=== PATIENT | female | born 1935 | race Caucasian/White ===

== ENCOUNTER 2017-10-08 08:21 | Outpatient (CLI) | payer MEDICARE, BC ==
[~2017-10-08] VITALS: Ht 170.2 cm; Wt 81.8 kg
[2017-10-08] MEDS ORDERED: LEVOXYL0.112 MG PO (08:36)
[2017-10-08] MEDS ORDERED: COUMADIN 2MG2 MG/TAB PO (08:36)
[2017-10-08] MEDS ORDERED: ZOCOR 10MG10 MG PO (08:37)
[2017-10-08] MEDS ORDERED: CALCIUM 600MG+D1 TAB PO (08:39)
[2017-10-08] MEDS ORDERED: NEURONTIN100 MG/CAP PO (08:39)
[2017-10-08] MEDS ORDERED: TYLENOL PM EXTR1 TA1 PO (08:40)
[2017-10-08 08:41] VITALS: BP 137/74; PULSE 63
[2017-10-08] MEDS ORDERED: CLEOCIN HCL300 MG PO (10:39)
[2017-10-08 11:05] VITALS: BP 142/78; PULSE 84; TEMP 97.4
== END 2017-10-08 11:15 | disposition home or self-care (01) ==
LOC: COL.CAR 08:21
DX: I48.0 Paroxysmal atrial fibrillation (principal); G45.9 Transient cerebral ischemic attack, unspecified; I47.1 Supraventricular tachycardia; I05.9 Rheumatic mitral valve disease, unspecified; Z79.01 Long term (current) use of anticoagulants; Z88.1 Allergy status to other antibiotic agents; Z79.82 Long term (current) use of aspirin; Z79.899 Other long term (current) drug therapy